=== PATIENT | male | born 1945 | race Caucasian/White ===

== ENCOUNTER 2023-01-01 10:02 | Day surgery (SDC) | payer OTHER, MEDICARE ==
[2022-12-31 09:23] LABS: Potassium 4.5 mEq/L (3.5-5.1)
--- NOTE | 2022-12-31 13:36 | EKG ---
Test Date: 2022-12-31 Test Time: 08:27:20 [employer]: SEAN MEASUREMENT RESULTS: Intervals: Rate: 54 NM: 168 QRSD: 90 QT: 448 QTc: 424 [place]zad: P: 80 NM: 168 QRS: 27 T: 58 INTERPRETIVE STATEMENTS: Sinus bradycardia Otherwise normal ECG No previous ECG available for comparison Electronically Signed On 12-31-22 13:35:25 CDT by Harjeet Ramirez
[2023-01-01] MEDS ORDERED: CEFOXITIN SODIUM 2 GM/VIAL ONE (10:30)
[2023-01-01] MEDS ORDERED: Ringers Lactate 1,000 ML IV ONE (10:30)
[2023-01-01] MEDS ORDERED: BUPIVACAINE 0.25% PF 30 ML VIAL ONE (10:51)
[2023-01-01] MEDS ORDERED: propofoL 200 MG/20 ML VIAL IV ONE (11:05)
[2023-01-01] MEDS ORDERED: MIDAZOLAM HCL 2 MG/2 ML INJ ONE (11:06)
[2023-01-01] MEDS ORDERED: FENTANYL CITR 100 MCG/2 ML ONE (11:06)
[2023-01-01] MEDS ORDERED: LIDOCAINE 2% MPF 5 ML VIAL ONE (11:08)
[2023-01-01] MEDS ORDERED: ROCURONIUM 50 MG/5 ML VIAL IV ONE (11:09)
[2023-01-01] MEDS ORDERED: ONDANSETRON 4 MG/2 ML VIAL ONE (11:09)
--- NOTE | 2023-01-01 13:34 | P.OP ---
Preoperative diagnosis: RIGHT inguinal hernia Postoperative diagnosis: RIGHT inguinal hernia Primary procedure: Open RIGHT inguinal hernia repair with mesh Anesthesia: GETA + Local Estimated blood loss: <5cc Specimen: hernia contents - adipose Findings: Incarcerated adipose in RIGHT inguinal hernia Complications: None Implants: Bard Perfix Plug and Patch Medium mesh Transferred to: Recovery Room Condition: Good
[2023-01-01] MEDS ORDERED: KETOROLAC 30 MG/ML INJ ONE (13:36)
[2023-01-01] MEDS ORDERED: dexAMETHasone 4 MG/ML VIAL ONE (13:36)
[2023-01-01] MEDS ORDERED: NEOSTIGMINE 1 MG/ML -10 ML VIAL ONE (13:52)
[2023-01-01] MEDS ORDERED: GLYCOPYRROLATE 0.2 MG/ML SYR ONE (13:52)
[2023-01-01] MEDS ORDERED: HYDROCODONE/APAP 10/325 TAB ONE (14:42)
[2023-01-01] MEDS ORDERED: NA CHLORIDE 0.9% 1,000 ML ONE (15:18)
[2023-01-01 16:57] VITALS: BP 146/64; TEMP 97; O2SAT 98
--- NOTE | 2023-01-01 22:57 | OP ---
Date of Procedure: 01/01/2023 Surgeon: Jimbo Jose MD, Preoperative Diagnosis: Right inguinal hernia. Postoperative Diagnosis: Right inguinal hernia. Procedure Performed: Open right inguinal hernia repair with mesh. Anesthesia: General endotracheal plus local with 0.25% Marcaine. Estimated Blood Loss: Less than 5 cc. Specimen: Hernia contents, which is adipose tissue. Findings: Incarcerated indirect adipose containing right inguinal hernia. Complications: None. Implants: Bard medium PerFix plug and patch hernia repair system. Disposition: Patient was transferred to recovery room in good condition. Procedure In Detail: After informed consent was obtained, the he patient was brought to the operatin g room, prepped and draped in the usual sterile fashion after adequate anesthesia was achieved. I ma de an inguinal incision down through subcutaneous tissues. I dissected down through Camper fat and S carpa's fascia to expose the external oblique aponeurosis, which was found to be quite thin and friab le. At this point, I dissected down and opened this up using a 15-blade. I then opened it in its en tirety using the Metzenbaum scissors protecting ilioinguinal and iliohypogastric nerves throughout. At this point, the spermatic cord structures were encircled and found to have significant adipose tis ave adhered to this as well as the spermatic cord structures had significant inflammatory changes and significant attachments to the hernia sac, which was in a medial approach consistent with an indirec t inguinal hernia with respect to the epigastric vessels. At this point, I kept the spermatic cord s tructures and Kevin drain encircled at this point and dissected free adipose tissue from the hernia sac as well as the hernia sac free from the spermatic cord structures. The preperitoneal adipose ti ssue was quite thickened, and at this point, I decided to ligate it. 0 Vicryl suture was used as a t ie at the base of the adipose tissue, which was incarcerated. This was ligated using electrocautery and sent off for pathologic examination as hernia contents. At this point, the adipose tissue was re turned to the preperitoneal position. The hernia sac was dissected further free from the spermatic c ord structures and was imbricated into the preperitoneal space back to its normal anatomic position. At this point, I deployed a medium Bard PerFix Plug into the preperitoneal position and secured it c ircumferentially around using a combination of 0 and 2-0 PDS sutures around the inguinal ring in an i nterrupted fashion. At this point, I deployed a hernia patch and sized it appropriately and secured it to the pubic tubercle under the spermatic cord structures using a type orientation. At this point, I secured to the medial and lateral shelving edge of the internal oblique aponeurosis as well as the undersurface of the inguinal ligament using 2-0 PDS sutures in an interrupted fashion. I reconstituted the deep inguinal ring with the same set 2-0 PDS suture and the area was copiously ir rigated, dried at this point. I then closed the external oblique aponeurosis using a running 3-0 Richie ryl suture. Camper fat and Florentin's fascia were closed on top of the external oblique aponeurosis af ter being closed with interrupted 3-0 Vicryl sutures. At this point, the area was irrigated again. Deep dermal plane was closed using same set 3-0 Vicryl suture and skin was closed with 4-0 Monocryl i n a running fashion. Dermabond placed over top complication and transferred back in good condition. All counts were correct at the end of the case. DAVINA/JAIRO Voice ID: [id number] Report ID: [id number]
== END 2023-01-01 16:50 | disposition home or self-care (01) ==
LOC: OR 10:02
PROVIDERS: ATTEND Surgery
PROC: 0YU50JZ Supplement Right Inguinal Region with Synthetic Substitute, Open Approach (ICD-10-PCS; principal; 2023-01-01 12:45)
DX: K40.90 Unilateral inguinal hernia, without obstruction or gangrene, not specified as recurrent (principal)
CPT/HCPCS: 93005; 80048; 36415; 88302; 49505; J2704; J1100; J2710; J2001; J2250; J3010; J0694; J2405; J7120; J7030